=== PATIENT | male | born 1945 ===

== ENCOUNTER 2019-07-16 00:06 | Outpatient (CLI) | payer MEDICARE, SELFPAY ==
[2019-07-16 18:00] LABS: SARS-CoV-2 RNA PCR Negative
== END 2019-07-16 00:07 | disposition home or self-care (01) ==
LOC: ANHCOVIDDT 00:06
PROVIDERS: PCP Family Medicine; Visit Provider Orthopaedic Surgery
DX: Z01.812 Encounter for preprocedural laboratory examination (principal); Z20.828 Contact with and (suspected) exposure to other viral communicable diseases
CPT/HCPCS: 87635; C9803; U0003

== ENCOUNTER 2019-07-19 00:59 | Day surgery (SDC) | payer MEDICARE, SELFPAY ==
[2019-07-07 16:04] VITALS: BMI 32.3
[2019-07-19] VITALS (7 sets, daily range): BP systolic 113–153; BP diastolic 62–70; PULSE 56–62; RESP 14–20; TEMP 36.1–36.8; O2SAT 97–100
[2019-07-19] MEDS: LACTATED RINGERS 1,000 ML 30 ML IV CONT ×2 (06:50→09:11)
[2019-07-19 06:53] LABS: Glucose Point of Care 158 (65-105)
[2019-07-19] MEDS: CELECOXIB 200 MG CAPSULE PO (06:57)
--- NOTE | 2019-07-19 07:12 | WPDANESEPPF ---
Anes - Initial Pre Proc Eval Procedure: Operation Date: 07/19/19 07:30 Proposed Procedures p Left Knee Arthroscopy, Proceed As Indicated - Júnior Maravilla MD Date/Time: 07/19/19 07:12 Surgeon: Júnior Maravilla MD Pre Op Diagnosis: Left Lateral Meniscus Tear Patient Data Age: 74 Gender: M Height: 5 ft 10 in Weight: 102.1 kg Allergies Allergy/AdvReac Type Severity Reaction Status Date / Time No Known Allergies Allergy Verified 07/19/19 06:19 Home Medications Medication Instructions Recorded Confirmed Type amlodipine 5 mg PO DAILY 07/07/19 07/19/19 History aspirin [Adult Low Dose Aspirin] 81 mg PO DAILY 07/07/19 07/19/19 History cholecalciferol (vitamin D3) 25 mcg PO DAILY 07/07/19 07/19/19 History duloxetine 30 mg PO DAILY 07/07/19 07/19/19 History evolocumab [Repatha Syringe] 140 mg SUBCUT [id number] 07/07/19 07/19/19 History mecobalamin (vitamin B12) 1,000 mcg PO DAILY 07/07/19 07/19/19 History metformin 1,000 mg PO BID 07/07/19 07/19/19 History metoprolol succinate 50 mg PO DAILY 07/07/19 07/19/19 History pioglitazone 15 mg PO DAILY 07/07/19 07/19/19 History Laboratory Tests 07/19/19 06:45 POC Capillary Glucose 158 mg/dl H mg/dl (65-105) Patient hx anesthesia problems: none Family hx anesthesia problems: none PMFSH Social History Social History Smoking status: Never smoker Alcohol intake: never Anes - Eval Final PreProcedure Day of Procedure 07/19/19 07:12 Patient weight: obese Heart: regular rate and rhythm Lungs: clear to auscultation Airway: Mallampati scale class III Neurological: alert and oriented Last oral intake: >/= 8 hours ASA classification: III Emergent: no Anesthetic plan: proceed Anesthesia type and monitoring: general LMA and standard monitoring Informed Consent: The patient's anesthetic plan and its attendant risks and benefits were discussed with the patient/family/POA. Questions were solicited and answers provided to the satisfaction of the patient/family/POA.
--- NOTE | 2019-07-19 07:30 | WPDHPUPDATE1 ---
History and Physical Update Update Date/Time: 07/19/19 07:30 History and Physical has been reviewed, including an updated exam of the patient. There are NO changes in the patient's condition. Risks, benefits, and alternatives have been discussed and questions answered. Patient agrees to proceed with procedure.
[2019-07-19] MEDS: ceFAZolin 2 GM/D5W 50 ML 2 GM/50 ML BAG IVPB (07:42)
--- NOTE | 2019-07-19 09:09 | PM.OP ---
Procedure Note - Brief Procedure Note - Brief Date of procedure: 07/19/19 Pre-op diagnosis: Left Lateral Meniscus Tear Post-op diagnosis: other (medial and lateral meniscus tear) Procedure performed: left knee scope Anesthesia: GLMA Surgeon: Júnior Maravilla MD Estimated blood loss (mL): 5 Complications: No immediate complications Condition: stable Disposition: PACU
[2019-07-19 09:29] LABS: Glucose Point of Care 149 (65-105)
--- NOTE | 2019-07-19 11:35 | SUR.PHASEII ---
Addendum entered by Becky Espino RN 07/19/19 11:37: TIME SHOULD STATE 1050 Original Note: 1150; PT DRESSED AND READY FOR DISCHARGE. WAITING ON RIDE HOME.
--- NOTE | 2019-07-19 12:39 | OP_ITS ---
DATE OF PROCEDURE: 07/19/2019 PREOPERATIVE DIAGNOSIS: Left knee lateral meniscus tear. POSTOPERATIVE DIAGNOSIS: Left knee lateral meniscus tear with medial meniscus tear, synovitis, and chondromalacia. PROCEDURE: Left knee arthroscopy with partial medial meniscectomy, partial lateral meniscectomy, major synovectomy, and chondroplasty. ANESTHESIA: General. COMPLICATIONS: None. INDICATIONS: This is a 74-year-old male with history of lateral meniscus tear, very active. He did not show significant signs of arthritis. He was indicated for left knee arthroscopy. DESCRIPTION OF PROCEDURE: The patient was taken to the operative room in stable condition, placed in the supine position. General anesthesia was induced and then, the left lower extremity was prepped and draped sterilely from the toes to the thigh. Superomedial portal was used for an outflow cannula. Inferolateral portal was used for the camera. The camera was introduced. 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 Next, a significant amount of synovitis and large plica band in the medial compartment. The medial compartment then was entered. There was a complex tear of the medial meniscus. A medial portal was established and the meniscus tear was resected down to a smooth base, and chondroplasty was performed in the medial femoral condyle, which had a large grade 2 defect. Next, the ACL was identified, it was intact. Lateral compartment was entered, there was a complex tear of the lateral meniscus. This was resected with the shaver and a biter to a smooth base and chondroplasty was performed in the lateral compartment on the lateral femoral condyle. Synovectomy was performed in this region as well due to impingement of synovium on the lateral compartment with flexion. Next, the patellofemoral joint was addressed and chondroplasty was performed at the patella and at the trochlea. The plica band was resected and synovectomy performed in that region. The knee joint was irrigated thoroughly. The instruments were removed. The wounds were approximated with 4-0 nylon suture. Sterile dressings were applied. The patient was extubated. D I MT: [facility]
== END 2019-07-19 11:15 | disposition home or self-care (01) ==
PROVIDERS: PCP Family Medicine; Visit Provider Orthopaedic Surgery
PROC: (CPT 29870; principal; 2019-07-19 07:30)
DX: M23.362 Other meniscus derangements, other lateral meniscus, left knee (principal); M23.332 Other meniscus derangements, other medial meniscus, left knee; M94.262 Chondromalacia, left knee; M65.862 Other synovitis and tenosynovitis, left lower leg; Z79.84 Long term (current) use of oral hypoglycemic drugs; Z79.82 Long term (current) use of aspirin; E66.9 Obesity, unspecified; Z68.32 Body mass index [BMI] 32.0-32.9, adult
CPT/HCPCS: 29880; A9270; J0131; J0690; J2250; J2370; J2405; J2704; J3010; J7120

== ENCOUNTER 2020-05-24 06:38 | Outpatient (CLI) | payer MEDICARE, SELFPAY ==
--- NOTE | ~2020-05-24 | MR_ITS ---
EXAMINATION: MR lumbar spine wo [facility] EXAM DATE: 05/24/2020 07:53 INDICATION: Low back pain, left hip and leg pain. TECHNIQUE: Multi-sequential, multiplanar MR images of the lumbar spine were obtained without contrast . Sagittal T1, T2, T2 fat saturation images. Axial T2 weighted images. There is no prior study for comparison. FINDINGS: There is moderate to severe disc disease at L5-S1, moderate at L4-5 and mild to moderate at the lumbar levels above. The conus medullaris terminates at the T12-L1 level and has normal signal i ntensity and morphology. The vertebral body heights are maintained. Paraspinal soft tissue is unrema rkable. Level by level evaluation: T12-L1: There is a minimal diffuse disc bulge. Facet arthropathy: Mild. Neural foraminal stenosis: No stenosis. Central canal stenosis: No stenosis. L1-L2: There is a mild to moderate diffuse disc bulge. Facet arthropathy: Mild. Neural foraminal stenosis: Mild bilateral. Central canal stenosis: Mild. L2-L3: There is a mild to moderate diffuse disc bulge. Facet arthropathy: Moderate . Ligamentum flavum enlargement. Neural foraminal stenosis: Mild to moderate left, mild right. Central canal stenosis: Mild to moderate. L3-L4: There is a moderate to large diffuse disc bulge. There is either a superimposed right central disc extrusion or a right-sided synovial cyst significantly narrowing the lateral recess. Facet arthropathy: Moderate to severe . Ligamentum flavum enlargement. Neural foraminal stenosis: Mild to moderate bilateral. Central canal stenosis: Moderate to severe. There is nerve root redundancy above this level. L4-L5: There is a moderate to large diffuse disc bulge. Facet arthropathy: Moderate to severe. Neural foraminal stenosis: Moderate bilateral. Central canal stenosis: Moderate. L5-S1: There is a moderate to large diffuse disc bulge. Facet arthropathy: Moderate. Neural foraminal stenosis: Moderate to severe bilateral. Central canal stenosis: Moderate. IMPRESSION: 1. L3-4 moderate to severe central canal stenosis with particular narrowing right lateral recess. 2. L5-S1 moderate to severe bilateral neural foraminal stenosis. 3. Lesser spondylosis above. Reviewed, dictated and finalized at location A. IMPRESSION: 1. L3-4 moderate to severe central canal stenosis with particular narrowing ri ght lateral recess. 2. L5-S1 moderate to severe bilateral neural foraminal stenosis. 3. Lesser spondylosis above.
== END 2020-05-24 06:39 | disposition home or self-care (01) ==
PROVIDERS: PCP Family Medicine; Visit Provider Orthopaedic Surgery
DX: M54.5 Low back pain (principal)
CPT/HCPCS: 72148

== ENCOUNTER 2020-12-05 13:15 | Outpatient (CLI) | payer MEDICARE, SELFPAY ==
--- NOTE | ~2020-12-05 | MR_ITS ---
EXAMINATION: MR thoracic spine wo con DATE: 12/05/2020 14:20 INDICATION: Back pain. TECHNIQUE: Magnetic resonance imaging (MRI) of the thoracic spine was performed without intravenous c ontrast. Sagittal localizer T1-weighted FSE of the cervical spine was obtained. Thoracic spine sequen valeria included sagittal T2-weighted FSE, sagittal T1-weighted FSE, sagittal STIR FSE, and axial T2-weig hted FSE. COMPARISON: Lumbar spine MRI 05/24/2020 FINDINGS: There is 6 degrees levocurvature of upper thoracic spine and 7 degrees dextrocurvature of l ower thoracic spine. There is mild chronic height loss of T6-T8 vertebral bodies. There is moderately decreased disc height at T3-T4 and severely decreased disc height at T6-T7 and T7-T8. There is inter body fusion at T6-T7. There is mildly decreased disc height at most other levels. There is multilevel facet joint osteoarthritis, severe on the right at T3-T4. There is multilevel mild neural foraminal stenosis bilaterally. On the right, there is moderate neural foraminal stenosis at T1-T2, T6-T7, T7-T 8, and T10-T11. On the left, there is moderate neural foraminal stenosis at T6-T7 and T7-T8. The disc s are bulging at T1-T2, T2-T3, T3-T4, T5-T6, T6-T7, and T7-T8 with mild central canal stenosis. At T8 -T9, there is a central extrusion with mild central canal stenosis. The spinal cord signal intensity is normal. IMPRESSION: 1. Severe thoracic spondylosis. Reviewed, dictated and finalized at location A.
== END 2020-12-05 13:16 | disposition home or self-care (01) ==
PROVIDERS: PCP Family Medicine; Visit Provider Nurse Practitioner Adult Health
DX: M47.894 Other spondylosis, thoracic region (principal)
CPT/HCPCS: 72146